=== PATIENT | female | born 1990 | race Two or more races ===

== ENCOUNTER 2023-06-26 08:46 | Outpatient (CLI) | payer OTHER | END 2023-06-26 08:48 | disposition home or self-care (01) | LOC: PRENATAL 08:46 | PROVIDERS: ATTEND Obstetrics & Gynecology Maternal & Fetal Medicine | DX: O36.80X0 Pregnancy with inconclusive fetal viability, not applicable or unspecified (principal); O09.529 Supervision of elderly multigravida, unspecified trimester; Z3A.12 12 weeks gestation of pregnancy ==

== ENCOUNTER → 2025-02-01 11:04 | Outpatient (CLI) | payer OTHER | END | disposition home or self-care (01) | LOC: PRENATAL 11:04 | PROVIDERS: ATTEND Obstetrics & Gynecology Maternal & Fetal Medicine | DX: O26.849 Uterine size-date discrepancy, unspecified trimester (principal); O36.8130 Decreased fetal movements, third trimester, not applicable or unspecified; Z3A.25 25 weeks gestation of pregnancy ==

== ENCOUNTER → 2025-03-08 13:08 | Outpatient (CLI) | payer OTHER | END | disposition home or self-care (01) | LOC: PRENATAL 13:08 | PROVIDERS: ATTEND Obstetrics & Gynecology Maternal & Fetal Medicine | DX: O26.843 Uterine size-date discrepancy, third trimester (principal); O36.8130 Decreased fetal movements, third trimester, not applicable or unspecified; O09.523 Supervision of elderly multigravida, third trimester; O36.1930 Maternal care for other isoimmunization, third trimester, not applicable or unspecified; Z3A.30 30 weeks gestation of pregnancy ==